=== PATIENT | male | born 1995 | race Caucasian/White ===

== ENCOUNTER 2019-10-01 07:17 | Outpatient (CLI) | payer BC, SELFPAY ==
--- NOTE | ~2019-10-01 | NM_ITS ---
EXAM: NM gastric emptying study DATE: 10/01/2019 13:48 INDICATION: Nausea and vomiting. TECHNIQUE: A gastric emptying study was performed using the methodology of Tiffany LY, et al. J Nucl Med 2007; 48:568-572. The patient was given a meal consisting of 2 scrambled eggs labeled with 0.975 mCi Tc-99m sulfur colloid, 2 slices of toast, two packages of jam, and approximately 120 mL of water . Simultaneous anterior and posterior 1-min images of the abdomen were obtained with the patient supi ne at multiple time points over a total period of 4 hours. The geometric mean of anterior and posteri or views was determined, and the percentage retention was calculated for each time point. COMPARISON: None. FINDINGS: Gastric retention of the radiotracer-labeled meal was 82%, 62%, and 20% at the 1-hour, 2-h our, and 4-hour time points, respectively. With this technique, apparent rapid gastric emptying is bryant ggested by <30% gastric retention at 1 hour. Delayed gastric emptying is defined by gastric retention of >90% at 1 hour, >60% retention at 2 hours, or >10% retention at 4 hours. IMPRESSION: 1. Delayed gastric emptying. Reviewed, dictated and finalized at location A. NCE LIAISON
== END 2019-10-01 07:18 | disposition home or self-care (01) ==
LOC: ANHIMG 07:26
PROVIDERS: PCP Pediatrics; Visit Provider Internal Medicine Gastroenterology
DX: R11.2 Nausea with vomiting, unspecified (principal); K30 Functional dyspepsia
CPT/HCPCS: 78264; A9541

== ENCOUNTER 2019-10-11 07:38 | Outpatient (CLI) | payer BC, SELFPAY ==
--- NOTE | ~2019-10-11 | US_ITS ---
US right upper quadrant DATE: 10/11/2019 08:07 INDICATION: Nausea and vomiting TECHNIQUE: Real-time imaging of the liver, pancreas, gallbladder COMPARISON: None FINDINGS: Hepatic steatosis. No hepatic space-occupying mass lesion. Normal hepatic portal venous jose w direction. No gallstones or gallbladder wall thickening or abnormal pericholecystic fluid collection. Negative s onographic Ortiz's sign. The common bile duct measures 4 mm, within normal range. No pancreatic mass or ductal dilatation is evident. The pancreas is not completely visualized due to interference from bowel gas however. IMPRESSION: Hepatic steatosis Reviewed, dictated and finalized at Location [facility]. Reviewed, dictated and finalized at location B. [facility]ED[facility] IMPRESSION: Hepatic steatosis
== END 2019-10-11 07:39 | disposition home or self-care (01) ==
PROVIDERS: PCP Pediatrics; Visit Provider Internal Medicine Gastroenterology
DX: R11.2 Nausea with vomiting, unspecified (principal); K76.0 Fatty (change of) liver, not elsewhere classified
CPT/HCPCS: 76705